=== PATIENT | female | born 1995 | race Caucasian/White ===

== ENCOUNTER 2016-08-13 23:16 | Emergency (ER) | payer SELFPAY ==
[~2016-08-13] VITALS: Ht 165.1 cm; Wt 72.6 kg
[2016-08-13 23:24] VITALS: BP_SYST 138
--- NOTE | 2016-08-13 23:45 | NUR ---
Placed in room 08 . Placed on athletic monitor, blood pressure machine and pulse oximeter. To gown for exam. Side rails up. Report given to DREA Galicia.
--- NOTE | 2016-08-13 23:59 | NUR ---
Nicko reports that she had a fall on her tailbone one week. She states that its been worsening since yesterday with having difficulty sittng or bending over. Pain of 9/10. No other complaints/injuries per patient or as noted.
--- NOTE | 2016-08-14 | NUR ---
Dr. Hadley at bedside
[2016-08-14] MEDS ORDERED: KETOROLAC TROMETHAMINE 60 MG/2 ML VIAL IM ONE (00:15)
--- NOTE | 2016-08-14 00:51 | NUR ---
Patient given written and verbal discharge instructions and verbalizes understanding. ER MD discussed with patient the results and treatment provided. Patient in stable condition. ID arm band removed. Rx of MOTRIN,TYLENOL WITH CODEINE given. Patient educated on pain management and to follow up with PMD. Pain Scale 7/10, patient states pain is tolerable and requesting to go home. MD aware. Opportunity for questions provided and answered.
--- NOTE | 2016-08-14 00:51 | NUR ---
Note undone in EDM - 08/14/16 at 0238 by SDEDGB Patient given written and verbal discharge instructions and verbalizes understanding. ER discussed with patient the results and treatment provided. Patient in stable condition. ID arm band removed. Rx of MOTRIN,TYLENOL WITH CODEINE given. Patient educated on pain management and to follow up with PMD. Pain Scale 7/10, IMPROVED STATES PT. Opportunity for questions provided and answered.
[2016-08-14 00:52] VITALS: BP_SYST 118
== END 2016-08-14 00:52 | disposition home or self-care (01) ==
LOC: SED 23:16
DX: S32.2XXA Fracture of coccyx, initial encounter for closed fracture (principal); W19.XXXA Unspecified fall, initial encounter; Y93.89 Activity, other specified; Y92.89 Other specified places as the place of occurrence of the external cause; Y99.8 Other external cause status
CPT/HCPCS: 72100; 72220; 81025; 96372; 99284; J1885

== ENCOUNTER 2016-09-26 19:36 | Emergency (ER) | payer SELFPAY ==
[~2016-09-26] VITALS: Ht 165.1 cm; Wt 72.6 kg
[2016-09-26 19:45] VITALS: BP_SYST 152
--- NOTE | 2016-09-26 19:55 | NUR ---
Pt placed to ER bed 06 and to gown. Pt states that she went camping 2 nights ago, then felt painful lumps beneath her breasts and since yesterday has been feeling dizzy with nausea.
--- NOTE | 2016-09-26 21:00 | NUR ---
No needs verbalized at this time. Family member at bedside.
--- NOTE | 2016-09-26 21:20 | NUR ---
Dr. Benitez at bedside to assess pt.
--- NOTE | 2016-09-26 21:24 | NUR ---
Breast exam performed by ER MD Jacinto with Lacy johnson.
[2016-09-26 22:00] VITALS: BP_SYST 136
--- NOTE | 2016-09-26 22:00 | NUR ---
Patient given written and verbal discharge instructions and verbalizes understanding. ER MD discussed with patient the results and treatment provided. Patient in stable condition. ID arm band removed. Rx of Meclizine, Clindimycin given. Patient educated on pain management and to follow up with PMD. Pain Scale 3/10. Opportunity for questions provided and answered.
== END 2016-09-26 22:00 | disposition home or self-care (01) ==
LOC: SED 19:36
DX: H81.10 Benign paroxysmal vertigo, unspecified ear (principal); L73.2 Hidradenitis suppurativa
CPT/HCPCS: 81025; 99283